=== PATIENT | male | born 2000 | race Caucasian/White ===

== ENCOUNTER 2021-01-19 09:37 | Emergency (ER) | payer BC, SELFPAY ==
--- NOTE | 2021-01-19 09:46 | ED.URI ---
HPI - URI/Sore Throat General Chief Complaint: Upper Respiratory Infection Stated Complaint: sore throat Time Seen by Provider: 01/19/21 09:46 Source: patient and RN notes reviewed History of Present Illness HPI Narrative: Patient is a 20-year-old male who presents the urgent care with complaints of sore throat, headache and postnasal drainage for the last 2 days. Patient states that he has been taking DayQuil for his symptoms. States that his roommate was diagnosed on Friday with strep. Denies of any known fevers, nausea, vomiting. States that he also has a hoarse voice for years no other acute complaints. No acute distress noted. Patient aware of the plan of care. Some parts of this dictation were generated by voice recognition software and may contain typographical and/or grammatical inaccuracies. Related Data Allergies Allergy/AdvReac Type Severity Reaction Status Date / Time Penicillins Allergy Unknown Verified 01/19/21 10:04 Review of Systems Review of Systems: Narrative: CONSTITUTIONAL: Denies fever, chills, or sweats. EYES: Denies visual changes, redness, or discharge. ENT: Reports of sore throat and postnasal drainage CARDIOVASCULAR: Denies chest pain, palpitations, or edema. RESPIRATORY: Denies cough or dyspnea. GASTROINTESTINAL: Denies abdominal pain, nausea, vomiting, or diarrhea. GENITOURINARY: Denies dysuria or hematuria. SKIN: Denies rash or itching. MUSCULOSKELETAL: Denies back pain, joint pain, or myalgia. NEUROLOGIC: Denies headache, numbness, or weakness. All other systems reviewed are negative, except as documented in HPI. [facility] Social History Social History Gender identity (if verbalized by the patient): Male Comments At the time of my signature, I reviewed and agree with the nursing past medical, surgical, social, and family history. There is no relevant family history pertinent to the patient complaint. Exam Narrative: Exam Narrative: GENERAL: This is a well-nourished, well-developed patient, in no apparent distress. HEAD: normocephalic, atraumatic. EYES: PERRL. Sclera clear/white. Vision is grossly intact. EARS: External ears normal, auditory canals clear and without drainage, TMs normal without perforation. Hearing grossly intact. NOSE: External nose normal with no obvious nasal discharge, nares without redness, no rhinorrhea. THROAT: Mucous membranes moist, moderate erythema to posterior oropharynx with mild bilateral tonsillar edema and exudate NECK: Neck supple, non-tender mild bilateral submandibular lymphadenopathy CARDIOVASCULAR: Regular rate and rhythm without murmurs, gallops, or rubs. RESPIRATORY: Clear to auscultation. Breath sounds equal bilaterally. No wheezes, rales, or rhonchi. SKIN: warm, intact with no suspicious lesions or rash, good texture and turgor. NEURO: awake, alert, and oriented to person, place and time. There were no obvious focal neurologic abnormalities. EXTREMITIES: No clubbing, cyanosis, or edema. Course Vital Signs Vital signs: Vital Signs Temperature 99.9 F H 01/19/21 09:54 Pulse Rate 74 01/19/21 09:54 Respiratory Rate 18 01/19/21 09:54 Blood Pressure 147/88 H 01/19/21 09:54 Pulse Oximetry 98 01/19/21 09:54 Temperature 99.9 F H 01/19/21 09:54 Pulse Rate 74 01/19/21 09:54 Respiratory Rate 18 01/19/21 09:54 Blood Pressure 147/88 H 01/19/21 09:54 Pulse Oximetry 98 01/19/21 09:54 Reviewed?patient is informed that they may have pre-hypertension or hypertension based on a blood pressure reading in the department. I recommend the patient call the primary care provider listed on their discharge instructions or a physician of their choice this week to arrange follow-up for further evaluation of possible pre-hypertension or hypertension. MDM - URI/Sore Throat MDM Narrative Medical decision making narrative: Reviewed lab results with the patient. He is aware that strep swab was negative. However due to your positive exposure and y
[2021-01-19 09:54] VITALS: BP 147/88; PULSE 74; RESP 18; TEMP 37.7; O2SAT 98
== END 2021-01-19 10:12 | disposition home or self-care (01) ==
PROVIDERS: Emergency Provider Nurse Practitioner Family
DX: J02.9 Acute pharyngitis, unspecified (principal); Z20.818 Contact with and (suspected) exposure to other bacterial communicable diseases
CPT/HCPCS: 87081; 87880; 99213; G0463